=== PATIENT | female | born 1975 ===

== ENCOUNTER 2021-07-13 12:57 | Outpatient (REF) | payer OTHER, SELFPAY ==
--- NOTE | 2021-07-13 16:20 | MHC.AU.ANR ---
Adult Audiological Evaluation Date of Visit: 07/13/21 Reason for Appointment: Audiological evaluation due to concerns for decreased hearing and tinnitus. She reports that her ears have been feeling blocked for a long time, and she started noticing tinnitus bilaterally over the past year. She notes that people tell her she talks loudly and she often misunderstands what people say. She also reports frequent feelings of unsteadiness and disequilibrium, particularly when climbing stairs. Does patient feel they have a hearing loss?: Yes If Yes, Which Ear?: Both Ears Has hearing been tested previously?: No Hearing Handicap Inventory: HHIE SCORE: 16 Based on HHIE score, patient has: Mild to moderate perceived hearing handicap Ear History: Family History of Hearing Loss?: Yes Ear Infections in Childhood: Both Ears Bothersome Tinnitus/Ringing/Noises in Ears: Both Ears Blocked/Full Sensation in Ear(s): Both Ears Medical History: Medical History: Diabetes, Headache, High Blood Pressure Medical History (Other): Sun's Thyroiditis (autoimmune disease), most of thyroid removed in 2011. Broken arm/carpal tunnel surgery in early 2019, then diagnosed with Complex Regional Pain Syndrome (CRPS) following surgery. Ocular migraines. IV iron infusion in April 2021 to treat anemia, since then isn't considered anemic anymore. Allergies: No known allergies Medication List: Levothyroxine 175 mg, Amlodipine 10 mg, Farxiga 5 mg Otoscopy: Right Ear: Unremarkable Left Ear: Unremarkable Tympanometry: Tympanometry performed due to: To assess integrity of the middle ear system Right Ear: Normal Middle Ear System (Type A) Left Ear: Normal Middle Ear System (Type A) Hearing Evaluation: Transducer(s) Used: Insert Earphones, Bone Conduction Method: Conventional Audiometry Stimuli Used: Pure Tones Right Ear: Description of Hearing: Normal hearing from 250-8000 Hz. Left Ear: Description of Hearing: Mild sensorineural hearing loss from 250-500 Hz, rising to normal hearing from 750-8000 Hz. Left ear is worse than the right by 25 dBHL at 250 Hz, 20 dBHL at 8000 Hz, and 15 dBHL at 500 and 6000 Hz. Speech Recognition Threshold (SRT): Method Used: Monitored Live Voice Stimuli Used: Spondee Words Right Ear: 5 dBHL Left Ear: 10 dBHL Word Discrimination: Method: Recorded Lists Word Lists Used: [employer]-6 Right Ear: 100% at 45 dBHL Left Ear: 96% at 50 dBHL Recommendations: Audiological re-evaluation in one year. Referral to Ear, Nose, and Throat is recommended due to asymmetric hearing. Diagnosis: Primary Diagnosis: H90.42 SNHL Unilateral Left Side, W/Unrestricted Contralateral Hearing Secondary Diagnosis: H93.13 Tinnitus, Bilateral Services Performed: Services Performed: Comprehensive Audiological Evaluation (CPT 37386) Tympanometry (CPT 88318) Signature: Provider: Yousuf Stone, CCC-A
== END 2021-07-13 12:58 | disposition home or self-care (01) ==
LOC: HO.SH 12:57
PROVIDERS: Visit Provider Internal Medicine
DX: H90.42 Sensorineural hearing loss, unilateral, left ear, with unrestricted hearing on the contralateral side (principal); H93.13 Tinnitus, bilateral
CPT/HCPCS: 92557; 92567